=== PATIENT | male | born 1990 ===

== ENCOUNTER 2016-10-26 23:00 | Emergency (ER) | payer MEDICAID ==
[2016-10-26 23:23] VITALS: BP 127/78; PULSE 84; RESP 16; TEMP 98.9; O2SAT 99
--- NOTE | 2016-10-26 23:43 | ED PDOC ---
Lower Extremity Pain/Injury Time Seen by Provider: 10/26/16 23:29 Chief Complaint (Nursing): Lower Extremity Problem/Injury Chief Complaint (Provider): ankle pain History Per: Patient Additional Complaint(s): 26-year-old male with no past medical history presents to emergency department with pain and swelling to right ankle status post twisting injury while playing basketball earlier today. Patient able to bear weight but has pain when doing so. No associated foot pain. No medication taken for pain relief prior to arrival. Patient denies numbness or tingling to affected area. He rates current pain as 7/10. Past Medical History Reviewed: Historical Data, Nursing Documentation, Vital Signs Vital Signs: Last Vital Signs Temp 98.9 F 10/26/16 23:19 Pulse 84 10/26/16 23:19 Resp 16 10/26/16 23:19 BP 127/78 10/26/16 23:19 Pulse Ox 99 10/26/16 23:19 - Medical History PMH: No Chronic Diseases - Surgical History Surgical History: No Surg Hx - Family History Family History: States: No Known Family Hx - Living Arrangements Living Arrangements: With Family - Social History Current smoker - smoking cessation education provided: Yes Alcohol: None Drugs: Denies - Home Medications Home Medications: Ambulatory Orders Medication Instructions Recorded Hydrocortisone [Hydrocortisone 1% 30 ml TP BID #1 lot 08/12/14 Lotion 60 ml] - Allergies Allergies/Adverse Reactions: Allergies Allergy/AdvReac Type Severity Reaction Status Date / Time No Known Allergies Allergy Verified 10/26/16 23:18 Wells Criteria for PE - Wells Criteria for Pulmonary Embolism Clinical Signs and Symptoms of DVT: No P.E is #1 Diagnosis, or Equally Likely: No Heart Rate >100: No Immobilization at least 3 days;Surgery previous 4 weeks: No Previous, objectively diagnosed PE or DVT: No Hemoptysis: No Malignancy w/treatment within 6 months, or palliative: No Total Score: 0 Review of Systems ROS Statement: Except As Marked, All Systems Reviewed And Found Negative Musculoskeletal: Positive for: Other (right ankle injury) Physical Exam - Reviewed Nursing Documentation Reviewed: Yes Vital Signs Reviewed: Yes - Physical Exam Appears: Positive for: Well, Non-toxic, No Acute Distress Skin: Negative for: Rash Eye Exam: Positive for: Normal appearance Extremity: Positive for: Other (Swelling and tenderness to right lateral malleolus with decreased range of motion of right ankle, nontender right foot, Achilles tendon intact) Neurologic/Psych: Positive for: Alert, Oriented - ECG O2 Sat by Pulse Oximetry: 99 Pulse Ox Interpretation: Normal - Other Rad right ankle x-ray X-Ray: Interpreted by Me, Viewed By Me X-Ray Interpretation: no fx, no dis Medical Decision Making Medical Decision Makin26 year old with right ankle injury Plan: PO motrin X-ray right ankle X-ray negative for fracture. See procedure note. Patient declined crutches. He was advised to continue with NSAIDs for pain and was referred to podiatry clinic for follow up. Procedures - Splinting Location: right ankle Pre-Made Type: kane wrap, aircast Pre-Proc Neuro Vasc Exam: normal Post-Proc Neuro Vasc Exam: normal Disposition - Clinical Impression Clinical Impression: Ankle sprain and strain - Patient ED Disposition Is Patient to be Admitted: No Counseled Patient/Family Regarding: Studies Performed, Diagnosis, Need For Followup - Disposition Referrals: Podiatry Clinic [Outside] Disposition: Routine/Home Disposition Time: 02:12 Condition: STABLE Additional Instructions: Ice, rest and elevate affected area. Take [id number] Advil for pain as needed. Follow up in 2-3 days with podiatry clinic. Instructions: Ankle Sprain (ED), Ankle Stirrup Splint (ED)
--- NOTE | 2016-10-27 10:08 | RAD ---
PROCEDURE: Right Ankle Radiographs. HISTORY: trauma COMPARISON: None FINDINGS: BONES: Bone alignment and mineralization are normal. No acute displaced fracture or bone destruction. JOINTS: Normal. Ankle mortise maintained. Talar dome intact SOFT TISSUES: There is mild lateral soft tissue swelling. OTHER FINDINGS: None. IMPRESSION: No acute fracture or dislocation. Mild lateral soft tissue swelling.
== END 2016-10-27 02:41 | disposition home or self-care (01) ==
LOC: H.ER 23:00
DX: S93.401A Sprain of unspecified ligament of right ankle, initial encounter (principal); X50.9XXA Other and unspecified overexertion or strenuous movements or postures, initial encounter; Y92.310 Basketball court as the place of occurrence of the external cause